=== PATIENT | male | born 1940 | race Caucasian/White ===

== ENCOUNTER 2023-11-05 19:18 | Emergency (ER) | payer MEDICARE ==
[~2023-11-05] VITALS: Ht 162.6 cm; Wt 68.0 kg
[2023-11-05] MEDS ORDERED: ATOR10TA PO (19:33)
[2023-11-05] MEDS ORDERED: APIX5TAB4 PO (19:33)
[2023-11-05 20:13] LABS: BASOPHILS % (AUTO) 0.2 % (0.0-2.0); HEMATOCRIT 36.2 % (36.7-47.1); HEMOGLOBIN 11.9 g/dL (12.5-16.3); LYMPHOCYTES # (AUTO) 0.6 K/uL (0.8-4.8); LYMPHOCYTES % (AUTO) 7.6 % (20.5-51.5); MEAN CORPUSCULAR HEMOGLOBIN 29.5 uug (23.8-33.4); MEAN CORPUSCULAR HGB CONC 33 g/dL (32.5-36.3); MEAN CORPUSCULAR VOLUME 89.4 fL (73.0-96.2); MONOCYTES # (AUTO) 0.6 K/uL (0.1-1.30); MONOCYTES % (AUTO) 7.7 % (0.0-11.0); NEUTROPHILS # (AUTO) 6.6 K/uL (1.8-8.9); NEUTROPHILS % (AUTO) 84.5 % (38.5-71.5); PLATELET COUNT (AUTO) 122 K/uL (152-348); RED BLOOD CELL COUNT(AUTO) 4.05 MIL/uL (4.06-5.63); RED CELL DISTRIBUTION WIDTH 15.2 % (12.1-16.2); WHITE BLOOD COUNT (AUTO) 7.9 K/uL (3.6-10.2)
[2023-11-05 20:14] LABS: DIFFERENTIAL COMMENT 1
[2023-11-05 20:18] LABS: CALCIUM 8.7 mg/dL (8.5-10.1); CREATININE 1.1 mg/dL (0.6-1.3)
[2023-11-05 20:30] LABS: ALBUMIN 3.5 g/dL (3.4-5.0); BILIRUBIN,TOTAL 0.7 mg/dL (0.2-1.0); TOTAL PROTEIN, SERUM 7.2 g/dL (6.4-8.2)
[2023-11-05] MEDS ORDERED: EZET10TA15 PO (22:56)
[2023-11-05] MEDS ORDERED: FLUV80TA2 PO (22:56)
[2023-11-05] MEDS ORDERED: FURO-152 PO (22:56)
[2023-11-05] MEDS ORDERED: APIX2.5T PO (22:56)
[2023-11-05] MEDS ORDERED: ASPI81TA31 PO (22:56)
[2023-11-05] MEDS ORDERED: OMEP20TA20 PO (22:56)
[2023-11-05 23:30] LABS: *BILIRUBIN,URIN NEGATIVE (NEGATIVE); *CLARITY,URINE CLEAR (CLEAR); *COLOR,URINE YELLOW (YELLOW); *KETONES,URINE NEGATIVE (NEGATIVE); *PROTEIN,URINE 2+ (NEGATIVE); *UROBILINOGEN,URINE 0.2 E.U./dl (NORMAL); LEUKOCYTE ESTERASE ,URINE NEGATIVE (NEGATIVE); NITRITE, URINE NEGATIVE (NEGATIVE); UGLUCOSE NEGATIVE (NEGATIVE)
[2023-11-05 23:37] LABS: *BLOOD, URINE NEGATIVE (NEGATIVE)
[2023-11-05 23:38] LABS: BACTERIA,URINE NONE SEEN /HPF (NONE SEEN); RBC,URINE 0-3 /HPF (0-3); SQUAMOUS EPITHELIAL CELL,UR NONE SEEN /HPF (NONE SEEN); WBC,URINE NONE SEEN /HPF (0-3)
[2023-11-06 05:04] VITALS: BP 136/75; TEMP 98.5; O2SAT 95
== END 2023-11-06 05:06 | disposition left against medical advice (07) ==
LOC: ER 19:20
DX: S22.32XA Fracture of one rib, left side, initial encounter for closed fracture (principal); Z79.82 Long term (current) use of aspirin; Z79.899 Other long term (current) drug therapy; W18.39XA Other fall on same level, initial encounter; Y93.89 Activity, other specified; Y92.89 Other specified places as the place of occurrence of the external cause; Y99.8 Other external cause status
CPT/HCPCS: 36415; 70450; 72125; 72131; 84484; 85025; A4606; A4663